=== PATIENT | male | born 1990 | race Caucasian/White ===

== ENCOUNTER 2021-07-17 16:37 | Emergency (ER) | payer OTHER ==
[~2021-07-17] VITALS: Ht 175.3 cm; Wt 77.1 kg
--- NOTE | 2021-07-17 17:18 | NUR ---
CALLED PT IN [facility], NO ANSWER.
--- NOTE | 2021-07-17 17:30 | NUR ---
CALLED PT IN [facility], NO ANSWER.
--- NOTE | 2021-07-17 17:59 | NUR ---
PT CALLED IN [place], NO ANSWER.
[2021-07-17 18:11] VITALS: BP 132/79
[2021-07-17] MEDS ORDERED: ACETAMINOPHEN ES 500 MG TABLET PO ONE (19:00)
[2021-07-17] MEDS ORDERED: IBUPROFEN 600 MG TABLET PO ONE (19:00)
[2021-07-17] MEDS ORDERED: IBUPROFEN 600 MG TABLET ONE (19:07)
[2021-07-17] MEDS ORDERED: ACETAMINOPHEN ES 500 MG TABLET ONE (19:07)
--- NOTE | 2021-07-17 19:32 | NUR ---
COVID SWAB DONE AND SENT TO LAB
--- NOTE | 2021-07-17 20:47 | NUR ---
l hand #20g s/l; patent and intact. blood collected and sent to lab
[2021-07-17 21:09] LABS: BASOPHILS % (AUTO) 0.5 % (0.0-2.0); EOSINOPHILS % (AUTO) 0.2 % (0.0-6.0); HEMATOCRIT 42 % (39-51); HEMOGLOBIN 13.6 g/dL (13.5-17.5); LYMPHOCYTES # (AUTO) 1.2 K/uL (0.8-4.8); MEAN CORPUSCULAR HGB CONC 32 g/dl (31.0-36.0); MEAN CORPUSCULAR VOLUME 74 fL (80-96); MONOCYTES # (AUTO) 0.3 K/uL (0.1-1.30); MONOCYTES % (AUTO) 4.2 % (2.0-12.0); NEUTROPHILS # (AUTO) 6.4 K/uL (1.8-8.9); NEUTROPHILS % (AUTO) 80.1 % (43.0-81.0); PLATELET COUNT (AUTO) 291 K/uL (150-450); RED BLOOD CELL COUNT(AUTO) 5.71 MIL/uL (4.5-6.0)
[2021-07-17 21:13] LABS: CALCIUM, SERUM 9.1 mg/dL (8.5-10.1); CREATININE 1.1 mg/dL (0.6-1.3); POTASSIUM 4.1 mmol/L (3.5-5.1)
--- NOTE | 2021-07-17 22:55 | NUR ---
Patient discharged to home in stable condition. Written and verbal after care instructions given. Patient verbalizes understanding of instruction.
== END 2021-07-17 22:55 ==
LOC: ER 17:19
DX: R05.9 Cough, unspecified (principal); R06.02 Shortness of breath; Z20.822 Contact with and (suspected) exposure to COVID-19; M25.511 Pain in right shoulder; S60.221A Contusion of right hand, initial encounter; W19.XXXA Unspecified fall, initial encounter; Y92.89 Other specified places as the place of occurrence of the external cause; E11.9 Type 2 diabetes mellitus without complications; I10 Essential (primary) hypertension; F17.210 Nicotine dependence, cigarettes, uncomplicated
CPT/HCPCS: 36415; 71045; 73060; 73130; 80048; 80320; 85025; 87426; 99284; 99406; C9803; G0480